=== PATIENT | male | born 1995 | race African-American/Black ===

== ENCOUNTER 2017-09-28 18:56 | Emergency (ER) | payer SELFPAY ==
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
[2017-09-28] MEDS ORDERED: Diphtheria,Pertussis(Acell),Tetanus Vaccine 0.5 ML Syringe IM ONE (19:27)
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
== END 2017-09-28 20:38 | disposition home or self-care (01) ==
LOC: MW.ED 18:56
DX: S00.83XA Contusion of other part of head, initial encounter (principal); Y04.0XXA Assault by unarmed brawl or fight, initial encounter; Z23 Encounter for immunization
CPT/HCPCS: 70450; 70450-26; 90471; 90715; 99283-25; 99284